=== PATIENT | female | born 1950 | race Caucasian/White ===

== ENCOUNTER → 2017-06-22 | Outpatient (CLI) | payer BC | LOC: BMCIMAGING 13:56 | PROVIDERS: ATTEND Podiatrist Foot & Ankle Surgery | DX: M20.12 Hallux valgus (acquired), left foot (principal); M20.11 Hallux valgus (acquired), right foot ==

== ENCOUNTER 2018-03-13 15:18 | Emergency (ER) | payer OTHER, BC ==
[2018-03-13 15:35] VITALS: BP 117/70
--- NOTE | 2018-03-13 15:47 | EDPHY ---
H & P Stated Complaint: left great toe redness,painfull since yesterday Time Seen by Provider: 03/13/18 15:38 HPI/ROS: CHIEF COMPLAINT: Gout flare HISTORY OF PRESENT ILLNESS: The patient is a 67-year-old female with a history of gout who comes to the emergency department complaining of pain and swelling of her left great toe. This began spontaneously yesterday. She has not had a fever. No trauma. No abrasions or lacerations. It is the same toe as previous flares. She has been eating protein and dairy recently and has also had a recent upper respiratory illness treated with azithromycin. No GI symptoms. Severity: Moderate Modifying factors: Pain with ambulation. REVIEW OF SYSTEMS: Constitutional: denies: chills, fever, recent illness, recent injury EENTM: denies: blurred vision, double vision, nose congestion Respiratory: denies: cough, shortness of breath Cardiac: denies: chest pain, irregular heart rate, lightheadedness, palpitations Gastrointestinal/Abdominal: denies: abdominal pain, diarrhea, nausea, vomiting, blood streaked stools Genitourinary: denies: dysuria, frequency, hematuria, pain Musculoskeletal: See HPI Skin: denies: lesions, rash, jaundice, bruising Neurological: denies: headache, numbness, paresthesia, tingling, dizziness, weakness Hematologic/Lymphatic: denies: blood clots, easy bleeding, easy bruising Immunologic/allergic: denies: HIV/AIDS, transplant 10 systems reviewed and negative except as noted EXAM: GENERAL: Well-appearing, well-nourished and in no acute distress. HEAD: Atraumatic, normocephalic. EYES: Pupils equal round and reactive to light, extraocular movements intact, sclera anicteric, conjunctiva are normal. ENT: TMs normal, nares patent, oropharynx clear without exudates. Moist mucous membranes. NECK: Normal range of motion, supple without lymphadenopathy or JVD. LUNGS: Breath sounds clear to auscultation bilaterally and equal. No wheezes rales or rhonchi. HEART: Regular rate and rhythm without murmurs, rubs or gallops. ABDOMEN: Soft, nontender, normoactive bowel sounds. No guarding, no rebound. No masses appreciated. BACK: No CVA tenderness, no spinal tenderness, step-offs or deformities EXTREMITIES: Left great toe with mild swelling and inflammation at the MTP joint. Mild warmth. No tenderness. No obvious tophi.. NEUROLOGICAL: Cranial nerves II through XII grossly intact. Normal speech, ambulates with pain. 5/5 strength, normal movement in all extremities, normal sensation, normal reflexes PSYCH: Normal mood, normal affect. Pleasant SKIN: Warm, dry, normal turgor, no visible rashes or lesions. Source: Patient Exam Limitations: No limitations - Personal History Current Tetanus Diphtheria and Acellular Pertussis (TDAP): Yes Tetanus Vaccine Date: 2013 - Medical/Surgical History Hx Asthma: No Hx Chronic Respiratory Disease: Yes Hx Diabetes: No Hx Cardiac Disease: No Hx Renal Disease: No Hx Cirrhosis: No Hx Alcoholism: No Hx HIV/AIDS: No Hx Splenectomy or Spleen Trauma: No Other PMH: Med hx-gout,,arthritis,hyperlipidemia,thyroid,anxiety,copd. surg- hyst-1999,tonsils-1971,cataract - Family History Significant Family History: No pertinent family hx - Social History Smoking Status: Former smoker Alcohol Use: Sober Constitutional: Initial Vital Signs Temperature (C) 37.0 C 03/13/18 15:30 Heart Rate 77 03/13/18 15:30 Respiratory Rate 16 03/13/18 15:30 Blood Pressure 117/70 03/13/18 15:30 O2 Sat (%) 95 03/13/18 15:30 O2 Delivery Mode Room Air Allergies/Adverse Reactions: No Known Allergies Allergy (Verified 03/13/18 15:23) Home Medications: Medication Instructions Recorded Advair 250/50 (*) 03/13/18 Atorvastatin Calcium 03/13/18 Centrum Chewables Adult Chw Tb 03/13/18 Colchicine 0.6 mg PO BID #60 capsule 03/13/18 Escitalopram Oxalate [Lexapro 10 03/13/18 MG] Fish Oil 1000 mg (*) 03/13/18 Synthroid 125 mcg (*) 03/13/18 Vitamin B12 03/13/18 Medical Decision Making ED Course/Re-evaluation: We discussed treatment options. This clinically appears consistent with gout and is consistent with previous flares. Will start her on colchicine and give a dose of Decadron here in the ER. Also discussed [id number] use of anti- inflammatories ice and rest. She feels comfortable with this plan. We discussed indications for returning. Discussed dietary changes. Differential Diagnosis: Partial list of the Differential diagnosis considered include but were not limited to; gout flare, septic joint and although unlikely based on the history and physical exam, I also considered fracture, dislocation, osteomyelitis. I discussed these differential diagnoses and the plan with the patient as well as the usual and expected course. The patient understands that the diagnosis is provisional and that in medicine we are not always correct and that further workup is often warranted. Usual and customary warnings were given. All of the patient's questions were answered. The patient was instructed to return to the emergency department should the symptoms at all worsen or return, otherwise to followup with the physician as we discussed. - Data Points Medications Given: Discontinued Medications Colchicine (Colchicine) 1.2 mg PO EDNOW ONE Stop: 03/13/18 15:56 Last Admin: 03/13/18 16:15 Dose: 1.2 mg Dexamethasone (Decadron) 10 mg PO EDNOW ONE Stop: 03/13/18 15:56 Last Admin: 03/13/18 16:19 Dose: 10 mg Departure - Departure Disposition: Home, Routine, Self-Care Clinical Impression: Gout attack Qualifiers: Gout site: toe Gout etiology: unspecified cause Laterality: left Qualified Code (s): M10.9 - Gout, unspecified Condition: Fair Instructions: Prednisone (By mouth), Colchicine (By mouth), Gout (ED) Referrals: Susan Mccall MD [Primary Care Provider] - 2-3 days, if not improved Prescriptions: Colchicine 0.6 mg PO BID #60 capsule
[2018-03-13] MEDS ORDERED: COLCHICINE 0.6 MG CAP/TAB PO ONE (15:55)
[2018-03-13] MEDS ORDERED: DEXAMETHASONE 4 MG TAB PO ONE (15:55)
== END 2018-03-13 16:22 | disposition home or self-care (01) ==
LOC: CED 15:18
DX: M10.9 Gout, unspecified (principal)
CPT/HCPCS: 99283-ER